=== PATIENT | female | born 1965 | race Two or more races ===

== ENCOUNTER 2016-12-25 06:51 | Day surgery (SDC) | payer BC ==
[~2016-12-25 06:51] MED LIST: BENZOCAINE MM PRN; BOT MM PRN; BUTAMBEN MM PRN; FENTANYL 250 MCG/5 ML AMP IV PRN; LACTATED RINGERS 1,000 ML IV SCH; MIDAZOLAM HCL 5 MG/5 ML VIAL IV PRN; TETRACAINE MM PRN
[2016-12-25] MEDS ORDERED: IV START KIT ONE (07:07)
[2016-12-25] MEDS ORDERED: MIDAZOLAM HCL 5 MG/5 ML VIAL ONE (08:15)
[2016-12-25] MEDS ORDERED: FENTANYL 100 MCG/2 ML VIAL ONE (08:15)
[2016-12-25] MEDS ORDERED: LIDOCAINE Viscous 2% 15 ML UDCUP ONE (08:15)
[2016-12-25] MEDS ORDERED: LIDOCAINE Viscous 2% 15 ML UDCUP PO PRN (08:40)
[2016-12-25] MEDS ORDERED: ONDANSETRON 4 MG ODT TAB ONE (09:33)
[2016-12-25] MEDS ORDERED: ONDANSETRON 4 MG ODT TAB PO ONE (09:33)
[2016-12-25 12:50] LABS: HELICOBACTER PYLORII DETECTION NEGATIVE (NEGATIVE)
--- NOTE | 2016-12-27 12:13 | SURGPATH ---
[facility] [address] [place] [id number] Patient Name: MARCIAL BRASHER MR#: [id number] : 1965 Gender: F Specimen #: [id number] Collected: 12/25/2016 Received: 12/26/2016 Reported: 12/27/2016 Submitting Phys: ZACK MOORE Copy To Phys: [facility] Clinical History / Pre-Operative Diagnosis: Dysphagia, heartburn Specimen Source / Surgical Procedure Performed: #1 antral biopsy rule out gastritis, #2 esophagus biopsy 36 cm rule out esophagitis Interpretation: 1. BIOPSY, ANTRUM: - FOCAL ACTIVE ANTRAL GASTRITIS. - NO HELICOBACTER ORGANISMS IDENTIFIED ON ROUTINE STAINING. 2. BIOPSY, ESOPHAGUS AT 36 CM: - NO SIGNIFICANT PATHOLOGIC ABNORMALITIES IDENTIFIED. Electronically Signed Out Amy Oneal M.D. Gross Description: The specimen is received in two formalin filled containers, labeled with the patient's name. 1. The specimen is labeled "antrum" and consists of two irregularly shaped fragment(s) of edwards tissue aggregating to 0.8 x 0.3 x 0.2 cm. The specimen is entirely submitted in cassette 1A. 2. The specimen is labeled "esophagus 36 cm" and consists of two irregularly shaped fragment(s) of edwards tissue aggregating to 0.6 x 0.3 x 0.1 cm. The specimen is entirely submitted in cassette 2A. [facility] Microscopic Description: 1. Sections of the antral biopsy show a focal area of active, acute inflammation within the lamina propria. There is mild associated mucosal congestion and minimal reactive changes. No intestinal metaplasia is seen. The mucosa is not atrophic. No Helicobacter organisms are identified on the routinely stained sections. 2. Sections of the esophageal biopsy at 36 cm show benign squamous and columnar lined mucosa with no significant pathologic changes. 1: [id number] 2: 17879 K29.00
== END 2016-12-25 09:45 | disposition home or self-care (01) ==
LOC: SDC 06:51
PROVIDERS: ATTEND Internal Medicine Gastroenterology
PROC: 0DB58ZX Excision of Esophagus, Via Natural or Artificial Opening Endoscopic, Diagnostic (ICD-10-PCS; principal; 2016-12-25)
PROC: 0DB68ZX Excision of Stomach, Via Natural or Artificial Opening Endoscopic, Diagnostic (ICD-10-PCS; 2016-12-25)
DX: K29.70 Gastritis, unspecified, without bleeding (principal); K29.80 Duodenitis without bleeding
CPT/HCPCS: 87081; 43239; J3010; J2250; A9270 ×2; J7120